=== PATIENT | female | born 1960 | race Caucasian/White ===

== ENCOUNTER 2022-01-09 10:35 | Day surgery (SDC) | payer OTHER ==
[~2022-01-09 10:35] MED LIST: Midazolam 1 MG/ML 2 ML SDV ONE; Propofol 200 MG/20 ML SDV ONE; fentaNYL 100 MCG/2 ML SDV ONE
[2022-01-09] MEDS ORDERED: Lactated Ringers 1,000 ML IV SCH (11:30)
[2022-01-09] MEDS ORDERED: Propofol 200 MG/20 ML SDV ONE (12:01)
[2022-01-09 13:04] VITALS: BP 100/42; PULSE 64
== END 2022-01-09 13:26 | disposition home or self-care (01) ==
LOC: JP.SDS 10:35
PROVIDERS: ATTEND Family Medicine
DX: D12.2 Benign neoplasm of ascending colon (principal); D12.5 Benign neoplasm of sigmoid colon; K62.1 Rectal polyp; K64.4 Residual hemorrhoidal skin tags; K64.8 Other hemorrhoids; F17.200 Nicotine dependence, unspecified, uncomplicated; I10 Essential (primary) hypertension; Z88.1 Allergy status to other antibiotic agents
CPT/HCPCS: 45380; 88305; J2250; J2704; J3010

== ENCOUNTER 2022-04-30 05:39 | Emergency (ER) | payer OTHER ==
[2022-04-30] MEDS ORDERED: Ondansetron 4 MG/2 ML SDV IVPUSH ONE (06:44)
[2022-04-30] MEDS ORDERED: Pantoprazole 80 MG in Sodium Chloride 0.9% 100 ML IV SCH (06:45)
[2022-04-30] MEDS ORDERED: Sodium Chloride 0.9% 1,000 ML IV SCH (06:45)
[2022-04-30 07:11] LABS: ESTIMATED GFR 52 mL/min (>60)
[2022-04-30] MEDS ORDERED: Sodium Chloride 0.9% 10 ML Syringe FLUSH PRN (07:23)
[2022-04-30 12:02] VITALS: BP 111/71; PULSE 95
== END 2022-04-30 11:45 | disposition home or self-care (01) ==
LOC: JP.ED 05:39
DX: K92.0 Hematemesis (principal); I10 Essential (primary) hypertension; F17.210 Nicotine dependence, cigarettes, uncomplicated; Z79.899 Other long term (current) drug therapy; Z90.710 Acquired absence of both cervix and uterus; Z20.822 Contact with and (suspected) exposure to COVID-19
CPT/HCPCS: 36415; 80053; 81001; 82272; 85018; 85025; 86850; 86900; 86901; 86920; 86922; 87635; 96361; 96365; 96375; 99284; C9113; J2405; J3490; J7030; U0002

== ENCOUNTER 2022-05-01 08:48 | Inpatient (IN) | payer OTHER ==
[~2022-05-01 08:48] MED LIST changes: +Ketorolac 30 MG/ML SDV ONE
[2022-05-01] MEDS: Dextrose 5%-Lactated Ringers 1,000 ML IV SCH ×2 (09:36→15:26)
[2022-05-01] MEDS ORDERED: Ondansetron 4 MG/2 ML SDV ONE (11:10)
[2022-05-01] MEDS ORDERED: Dexamethasone 4 MG/ML SDV ONE (11:10)
[2022-05-01] MEDS ORDERED: Ondansetron 4 MG/2 ML SDV IVPUSH PRN (11:57)
[2022-05-01] MEDS ORDERED: Pantoprazole 40 MG Vial IVPUSH ONE (12:00)
[2022-05-01] MEDS ORDERED: Albuterol 90 MCG/6.7 GM Inhaler INH PRN (12:02)
[2022-05-01] MEDS: Potassium Chloride 20 MEQ Tab.ER PO SCH (14:56)
[2022-05-01] MEDS: Bisacodyl 5 MG Tab PO SCH (22:05)
[2022-05-01] MEDS: Cetirizine 10 MG Tab PO SCH (22:05)
[2022-05-01] MEDS: Pantoprazole 40 MG Vial IV SCH (22:06)
[2022-05-01] MEDS: Metoprolol Tartrate 25 MG Tab PO SCH (22:06)
[2022-05-01] MEDS: Acetaminophen/Caffeine 500-65 MG Tab PO SCH (22:06)
[2022-05-01] MEDS: Sennosides 8.6 MG Tab PO SCH (22:06)
[2022-05-02 05:20] LABS: ESTIMATED GFR 84 mL/min (>60)
[2022-05-02] MEDS ORDERED: Potassium Chloride 10 MEQ in Premix Bag 1 BAG IV ONE ×2 (05:33→06:30)
[2022-05-02] MEDS ORDERED: Propofol 200 MG/20 ML SDV ONE (06:47)
[2022-05-02] MEDS ORDERED: fentaNYL 100 MCG/2 ML SDV ONE (06:47)
[2022-05-02] MEDS: Metoprolol Tartrate 25 MG Tab PO SCH ×2 (08:53→23:10)
[2022-05-02] MEDS: Hydrochlorothiazide 25 MG Tab PO SCH (08:53)
[2022-05-02] MEDS: Magnesium Sulfate/Water 50 ML IV SCH ×3 (09:14→23:11)
[2022-05-02] MEDS: Potassium Chloride 20 MEQ Tab.ER PO SCH (09:55)
[2022-05-02] MEDS: Acetaminophen/Caffeine 500-65 MG Tab PO SCH ×2 (09:55→23:11)
[2022-05-02] MEDS: Nicotine 21 MG/24 Hr Patch TRDERM SCH (09:56)
[2022-05-02] MEDS: Cetirizine 10 MG Tab PO SCH (09:57)
[2022-05-02] MEDS: Sennosides 8.6 MG Tab PO SCH ×2 (09:57→22:51)
[2022-05-02] MEDS: Pantoprazole 40 MG Vial IV SCH ×2 (09:57→23:11)
[2022-05-02] MEDS: Potassium Phosphates 15 MMOLE in Sodium Chloride 0.9% 250 ML IV SCH ×4 (10:01→19:40)
[2022-05-02] MEDS: Bisacodyl 5 MG Tab PO SCH ×2 (10:20→22:51)
[2022-05-02] MEDS: Dextrose 5%-Lactated Ringers 1,000 ML IV SCH (15:45)
[2022-05-02 17:07] LABS: ESTIMATED GFR 84 mL/min (>60)
[2022-05-03 05:25] LABS: ESTIMATED GFR 84 mL/min (>60)
[2022-05-03 08:18] VITALS: BP 122/65; PULSE 83
[2022-05-03] MEDS: Nicotine 21 MG/24 Hr Patch TRDERM SCH (09:07)
[2022-05-03] MEDS: Sennosides 8.6 MG Tab PO SCH (09:07)
[2022-05-03] MEDS: Cetirizine 10 MG Tab PO SCH (09:07)
[2022-05-03] MEDS: Acetaminophen/Caffeine 500-65 MG Tab PO SCH (09:07)
[2022-05-03] MEDS: Bisacodyl 5 MG Tab PO SCH (09:07)
[2022-05-03] MEDS: Metoprolol Tartrate 25 MG Tab PO SCH (09:07)
[2022-05-03] MEDS: Hydrochlorothiazide 25 MG Tab PO SCH (09:07)
[2022-05-03] MEDS: Potassium Chloride 20 MEQ Tab.ER PO SCH (09:14)
== END 2022-05-03 10:11 | disposition home or self-care (01) | DRG 378 ==
LOC: JP.SDS 08:48 → JP.SDSSCHI 08:48 → EDSTATUS 09:45 → JP.2SS 12:16
PROVIDERS: ADMIT Surgery; ATTEND Surgery
PROC: 0DB78ZX Excision of Stomach, Pylorus, Via Natural or Artificial Opening Endoscopic, Diagnostic (ICD-10-PCS; principal; 2022-05-02)
PROC: 30233N1 Transfusion of Nonautologous Red Blood Cells into Peripheral Vein, Percutaneous Approach (ICD-10-PCS; 2022-05-02)
DX: K25.4 Chronic or unspecified gastric ulcer with hemorrhage (principal); D62 Acute posthemorrhagic anemia; K59.09 Other constipation; F17.210 Nicotine dependence, cigarettes, uncomplicated; E87.6 Hypokalemia; E83.42 Hypomagnesemia; E83.39 Other disorders of phosphorus metabolism; I10 Essential (primary) hypertension; Z79.899 Other long term (current) drug therapy; Z79.1 Long term (current) use of non-steroidal anti-inflammatories (NSAID); Z90.710 Acquired absence of both cervix and uterus; Z85.42 Personal history of malignant neoplasm of other parts of uterus
CPT/HCPCS: 36415; 36430; 80048; 80053; 83735; 83880; 84100; 85025; 85027; 85610; 86850; 86900; 86901; 86920; 86922; 87081; 88305; A9270-GY; C9113; J1100; J1885; J2250; J2405; J2704; J3010; J3475; J3480; J3490; J7050; J7121; P9016

== ENCOUNTER 2022-06-06 06:11 | Day surgery (SDC) | payer OTHER ==
[2022-06-06] MEDS ORDERED: Dextrose 5%-Lactated Ringers 1,000 ML IV SCH (07:00)
[2022-06-06] MEDS ORDERED: Propofol 200 MG/20 ML SDV ONE (07:05)
[2022-06-06] MEDS ORDERED: Midazolam 1 MG/ML 2 ML SDV ONE (07:05)
[2022-06-06 09:14] VITALS: BP 90/41; PULSE 65
== END 2022-06-06 09:22 | disposition home or self-care (01) ==
LOC: JP.SDS 06:11
PROVIDERS: ATTEND Surgery
DX: K25.9 Gastric ulcer, unspecified as acute or chronic, without hemorrhage or perforation (principal); K29.70 Gastritis, unspecified, without bleeding; K29.80 Duodenitis without bleeding; K44.9 Diaphragmatic hernia without obstruction or gangrene; I10 Essential (primary) hypertension; F17.200 Nicotine dependence, unspecified, uncomplicated; Z88.0 Allergy status to penicillin
CPT/HCPCS: 43239; 87081; J2250; J2704; J7121